=== PATIENT | male | born 1995 | race African-American/Black ===

== ENCOUNTER 2018-01-04 15:20 | Emergency (ER) | payer MEDICAID, OTHER ==
[~2018-01-04] VITALS: Ht 175.3 cm; Wt 77.0 kg
[~2018-01-04 15:20] MED LIST: GABA-533 PO; IBUP-1506 PO
[2018-01-04 15:22] VITALS: BP 146/71
[2018-01-04] MEDS ORDERED: HYDROCODONE/ACETAMINOPHEN 5-325 MG TABLET PO ONE (16:45)
[2018-01-04] MEDS ORDERED: CLINDAMYCIN HCL 150 MG CAPSULE PO ONE (16:45)
== END 2018-01-04 17:28 | disposition home or self-care (01) ==
LOC: EMS 15:21
DX: K04.7 Periapical abscess without sinus (principal); J45.909 Unspecified asthma, uncomplicated; F17.210 Nicotine dependence, cigarettes, uncomplicated
CPT/HCPCS: 99283